=== PATIENT | male | born 1970 | race African-American/Black ===

== ENCOUNTER 2017-10-04 18:42 | Emergency (ER) | payer MEDICAID ==
[~2017-10-04] VITALS: Ht 185.4 cm; Wt 91.0 kg
[2017-10-04] MEDS ORDERED: LISI10TA5 PO (18:52)
[2017-10-04] MEDS ORDERED: ASPI-1159 PO (18:52)
[2017-10-04] MEDS ORDERED: LORA10TA7 PO (18:52)
[2017-10-04] MEDS ORDERED: HYDR12.54 PO (18:52)
[2017-10-04] MEDS ORDERED: SIMV20TA6 PO (18:52)
[2017-10-04 23:12] LABS: CLARITY URINE CLEAR (CLEAR); COLOR URINE YELLOW (YELLOW); KETONES URINE NEGATIVE (NEGATIVE); LEUKOCYTE ESTERASE URINE NEGATIVE (NEGATIVE); NITRITE URINE NEGATIVE (NEGATIVE); OCCULT BLOOD URINE NEGATIVE (NEGATIVE); PROTEIN URINE NEGATIVE (NEGATIVE); UROBILINOGEN URINE 0.2 E.U./dL (0.2-1.0)
[2017-10-04 23:13] LABS: CHLORIDE 106 mEq/L (98-107)
[2017-10-04 23:14] LABS: BASOPHILS % 0.5 % (0.0-2.0); EOSINOPHILS % 1.7 % (0.0-5.0); HEMATOCRIT. 45.2 % (42.0-52.0); HEMOGLOBIN. 14.8 g/dL (14.0-18.0); LYMPHOCYTES % 33.9 % (20.0-50.0); MEAN CORPUSCULAR HEMOGLOBIN 29.2 pg (28.0-32.0); MEAN CORPUSCULAR VOLUME 88.9 fL (80.0-94.0); MEAN PLATELET VOLUME 9.1 fl (7.4-10.4); MONOCYTES % 5.4 % (2.0-8.0); NEUTROPHILS % 58.5 % (40.0-76.0); PLATELET 256 x1000/uL (130-400); RED BLOOD CELL COUNT 5.08 mill/uL (4.7-6.1)
[2017-10-04 23:16] LABS: CARBON DIOXIDE 31 mEq/L (21-32)
[2017-10-04 23:24] LABS: PROTHROMBIN TIME 10.2 sec (9.4-11.6)
[2017-10-05 02:01] LABS: TROPONIN I < 0.02 ng/mL (0.00-0.04)
[2017-10-05 03:15] VITALS: BP 190/110
== END 2017-10-05 04:34 | disposition home or self-care (01) ==
LOC: ER 19:11
DX: R42 Dizziness and giddiness (principal); I10 Essential (primary) hypertension; R09.89 Other specified symptoms and signs involving the circulatory and respiratory systems; F41.9 Anxiety disorder, unspecified; G47.00 Insomnia, unspecified; R94.31 Abnormal electrocardiogram [ECG] [EKG]; F12.10 Cannabis abuse, uncomplicated; F32.9 Major depressive disorder, single episode, unspecified; Z79.82 Long term (current) use of aspirin
CPT/HCPCS: 36415; 80053; 81003; 83880; 84443; 84484; 85025; 85610; 93005; 99285; Z7610

== ENCOUNTER 2017-11-23 11:27 | Emergency (ER) | payer MEDICAID ==
[~2017-11-23] VITALS: Ht 182.9 cm; Wt 93.0 kg
[~2017-11-23 11:27] MED LIST: ASPI-1159 PO; HYDR12.54 PO; LISI10TA5 PO; LORA10TA7 PO; SIMV20TA6 PO
[2017-11-23 13:53] VITALS: BP 142/94
== END 2017-11-23 15:19 | disposition left against medical advice (07) ==
LOC: ER 13:31
DX: Z53.21 Procedure and treatment not carried out due to patient leaving prior to being seen by health care provider (principal)

== ENCOUNTER 2018-04-17 21:59 | Emergency (ER) | payer MEDICAID ==
[~2018-04-17] VITALS: Ht 185.4 cm; Wt 93.0 kg
[2018-04-17 22:05] VITALS: BP 140/80
== END 2018-04-18 01:45 | disposition left against medical advice (07) ==
LOC: ER 21:59
DX: Z53.21 Procedure and treatment not carried out due to patient leaving prior to being seen by health care provider (principal); I10 Essential (primary) hypertension

== ENCOUNTER 2020-07-08 13:17 | Emergency (ER) | payer MEDICAID ==
[~2020-07-08 13:17] MED LIST changes: -ASPI-1159 PO; +ASPI-1497 PO; +SIMV-43 PO; -SIMV20TA6 PO
[2020-07-08 13:53] VITALS: BP 163/89
== END 2020-07-08 15:19 | disposition home or self-care (01) ==
LOC: ER 13:50
DX: K62.5 Hemorrhage of anus and rectum (principal); I10 Essential (primary) hypertension; F12.10 Cannabis abuse, uncomplicated; Z79.82 Long term (current) use of aspirin
CPT/HCPCS: 93005; 99284

== ENCOUNTER 2022-03-20 19:20 | Emergency (ER) | payer MEDICAID ==
[~2022-03-20] VITALS: Ht 185.4 cm; Wt 100.0 kg
[~2022-03-20 19:20] MED LIST changes: +LISI10TA26 PO; -LISI10TA5 PO
[2022-03-20] MEDS ORDERED: DEXAMETHASONE 10 MG/ML VIAL IM ONE (20:30)
[2022-03-20] MEDS ORDERED: DIPHENHYDRAMINE 50MG CAPSULE PO ONE (20:30)
[2022-03-20] MEDS ORDERED: FAMOTIDINE 20MG TABLET PO ONE (20:30)
[2022-03-20] MEDS ORDERED: EPINEPHRINE 1:1000 1 MG/ML AMP IM ONE (20:30)
[2022-03-20] MEDS ORDERED: EPIN0.3P3 IM (21:09)
[2022-03-20 22:45] VITALS: BP 135/86
== END 2022-03-20 22:49 | disposition home or self-care (01) ==
LOC: ER 19:20
DX: R21 Rash and other nonspecific skin eruption (principal); I10 Essential (primary) hypertension; Z79.82 Long term (current) use of aspirin
CPT/HCPCS: 96372; 99284; J1100; J3490; Q0163

== ENCOUNTER 2023-11-01 17:47 | Emergency (ER) | payer MEDICAID, OTHER ==
[~2023-11-01] VITALS: Ht 182.9 cm; Wt 99.7 kg
[~2023-11-01 17:47] MED LIST changes: +EPIN0.3P3 IM
[2023-11-01 18:14] VITALS: BP 172/81; PULSE 66; RESP 16; TEMP 98; O2SAT 98
== END 2023-11-01 21:03 | disposition home or self-care (01) ==
LOC: ER 17:47
DX: S99.921A Unspecified injury of right foot, initial encounter (principal); F12.10 Cannabis abuse, uncomplicated; X58.XXXA Exposure to other specified factors, initial encounter; Y93.89 Activity, other specified; Y92.89 Other specified places as the place of occurrence of the external cause; Y99.8 Other external cause status
CPT/HCPCS: 99281

== ENCOUNTER 2024-03-26 11:40 | Emergency (ER) | payer OTHER ==
[~2024-03-26] VITALS: Ht 188 cm; Wt 100.0 kg
[2024-03-26 11:43] VITALS: BP 156/94; PULSE 77; RESP 18; TEMP 98.2; O2SAT 99
== END 2024-03-26 12:15 | disposition home or self-care (01) ==
LOC: ER 11:40
DX: S00.512A Abrasion of oral cavity, initial encounter (principal); F12.10 Cannabis abuse, uncomplicated; I10 Essential (primary) hypertension; X58.XXXA Exposure to other specified factors, initial encounter; Y93.89 Activity, other specified; Y92.89 Other specified places as the place of occurrence of the external cause; Y99.8 Other external cause status
CPT/HCPCS: 99281

== ENCOUNTER 2024-04-10 09:43 | Emergency (ER) | payer MEDICAID, OTHER ==
[~2024-04-10] VITALS: Ht 188 cm; Wt 100.0 kg
[2024-04-10 09:56] VITALS: O2SAT 99
[2024-04-10 10:11] LABS: BASOPHILS % 0.7 % (0.0-2.0); EOSINOPHILS % 0.5 % (0.0-5.0); HEMATOCRIT. 46.8 % (42.0-52.0); HEMOGLOBIN. 15.5 g/dL (14.0-18.0); LYMPHOCYTES % 25.5 % (20.0-50.0); MEAN CORPUSCULAR HEMOGLOBIN 29.3 pg (28.0-32.0); MEAN CORPUSCULAR HGB CONC 33.1 g/dL (31.0-37.0); MEAN CORPUSCULAR VOLUME 88.4 fL (80.0-94.0); MEAN PLATELET VOLUME 8.1 fl (7.4-10.4); MONOCYTES % 4.7 % (2.0-8.0); NEUTROPHILS % 68.6 % (40.0-76.0); PLATELET 286 x1000/uL (130-400); RED BLOOD CELL COUNT 5.29 mill/uL (4.7-6.1); WHITE BLOOD COUNT 12.9 x1000/uL (4.5-11.0)
[2024-04-10 10:19] LABS: CHLORIDE 106 mEq/L (98-107); POTASSIUM 3.8 mEq/L (3.5-5.1); SODIUM 139 mEq/L (136-145)
[2024-04-10 10:20] LABS: CARBON DIOXIDE 26 mEq/L (21-32)
[2024-04-10 10:21] LABS: CALCIUM 9.5 mg/dL (8.7-10.4)
[2024-04-10 10:25] LABS: CREATININE 1.4 mg/dL (0.6-1.3); GLUCOSE 108 mg/dL (70-105); UREA NITROGEN BLOOD 9 mg/dL (9-23)
[2024-04-10 10:26] LABS: TROPONIN I HIGH SENSITIVITY 4 ng/L (3.0-53)
[2024-04-10 12:35] LABS: TROPONIN I HIGH SENSITIVITY 4 ng/L (3.0-53)
[2024-04-10] MEDS ORDERED: FLUT9.9S BOTHNSTRLS (12:59)
[2024-04-10 13:26] VITALS: BP 147/89; PULSE 90; RESP 18; TEMP 98.4
== END 2024-04-10 14:24 | disposition home or self-care (01) ==
LOC: ER 09:43
DX: B34.9 Viral infection, unspecified (principal); R06.02 Shortness of breath; R79.89 Other specified abnormal findings of blood chemistry; F12.10 Cannabis abuse, uncomplicated; I10 Essential (primary) hypertension
CPT/HCPCS: 36415; 71045; 80048; 84484; 85025; 93005; 99285